=== PATIENT | female | born 1955 | race Two or more races ===

== ENCOUNTER 2021-01-11 08:31 | Outpatient (CLI) | payer OTHER ==
[2021-01-24] MEDS ORDERED: CELEBREX200MG PO (09:38)
[2021-01-24] MEDS ORDERED: METHOCARBAMOL500 MG PO (09:38)
== END 2021-01-11 08:44 | disposition home or self-care (01) ==
LOC: MRI 08:31
PROVIDERS: ATTEND Physical Medicine & Rehabilitation
DX: M51.37 Other intervertebral disc degeneration, lumbosacral region (principal); M54.59 Other low back pain
CPT/HCPCS: 72148

== ENCOUNTER 2021-03-21 07:23 | Outpatient (CLI) | payer OTHER ==
[~2021-03-21 07:23] MED LIST: CELEBREX200MG PO; METHOCARBAMOL500 MG PO
== END 2021-03-21 07:42 | disposition home or self-care (01) ==
LOC: MAMO-SONO 07:23
PROVIDERS: ATTEND Obstetrics & Gynecology
DX: N60.11 Diffuse cystic mastopathy of right breast (principal); N60.12 Diffuse cystic mastopathy of left breast; Z12.31 Encounter for screening mammogram for malignant neoplasm of breast; K76.0 Fatty (change of) liver, not elsewhere classified; R16.0 Hepatomegaly, not elsewhere classified; E04.2 Nontoxic multinodular goiter

== ENCOUNTER 2021-07-31 07:45 | Outpatient (CLI) | payer OTHER | END 2021-07-31 07:54 | disposition home or self-care (01) | LOC: RAD 07:45 | PROVIDERS: ATTEND Emergency Medicine | DX: J20.9 Acute bronchitis, unspecified (principal) ==

== ENCOUNTER 2022-07-16 12:17 | Outpatient (CLI) | payer OTHER | END 2022-07-16 12:21 | disposition home or self-care (01) | LOC: RAD 12:17 | PROVIDERS: ATTEND General Practice | DX: M12.9 Arthropathy, unspecified (principal) ==

== ENCOUNTER 2022-08-05 14:30 | Outpatient (CLI) | payer OTHER | END 2022-08-05 15:00 | disposition home or self-care (01) | LOC: NUCLEAR 14:30 | PROVIDERS: ATTEND General Practice | DX: M81.0 Age-related osteoporosis without current pathological fracture (principal) ==

== ENCOUNTER 2022-09-26 10:43 | Outpatient (CLI) | payer OTHER | END 2022-09-26 10:48 | disposition home or self-care (01) | LOC: SONOGRAMA 10:43 | DX: E04.2 Nontoxic multinodular goiter (principal) ==

== ENCOUNTER 2023-08-27 10:45 | Outpatient (CLI) | payer OTHER | END 2023-08-27 10:54 | disposition home or self-care (01) | LOC: RAD 10:45 | DX: R05.1 Acute cough (principal) ==

== ENCOUNTER 2023-10-28 07:45 | Outpatient (CLI) | payer OTHER | END 2023-10-28 07:48 | disposition home or self-care (01) | LOC: MRI 07:45 | DX: M67.471 Ganglion, right ankle and foot (principal) | CPT/HCPCS: 73721 ==

== ENCOUNTER 2023-12-22 09:41 | Emergency (ER) | payer OTHER ==
[~2023-12-22] VITALS: Ht 160 cm; Wt 77.1 kg
[2023-12-22] MEDS ORDERED: SYNTHROID88 MCG PO (10:09)
[2023-12-22] MEDS ORDERED: MORGIDOX100 MG PO (10:10)
== END 2023-12-22 13:10 | disposition home or self-care (01) ==
LOC: ER 09:41
DX: M67.471 Ganglion, right ankle and foot (principal); E03.8 Other specified hypothyroidism; M77.31 Calcaneal spur, right foot; M19.071 Primary osteoarthritis, right ankle and foot

== ENCOUNTER 2025-02-04 13:49 | Outpatient (CLI) | payer OTHER ==
[~2025-02-04 13:49] MED LIST changes: +MORGIDOX100 MG PO; +SYNTHROID88 MCG PO
== END 2025-02-04 13:51 | disposition home or self-care (01) ==
LOC: MAMO-SONO 13:49
DX: E04.2 Nontoxic multinodular goiter (principal); N60.11 Diffuse cystic mastopathy of right breast; N60.12 Diffuse cystic mastopathy of left breast; Z12.31 Encounter for screening mammogram for malignant neoplasm of breast

== ENCOUNTER → 2025-02-22 11:00 | Outpatient (CLI) | payer OTHER | END | disposition home or self-care (01) | LOC: NUCLEAR 11:00 | PROVIDERS: ATTEND General Practice | DX: M81.0 Age-related osteoporosis without current pathological fracture (principal) ==